=== PATIENT | male | born 1980 | race Caucasian/White ===

== ENCOUNTER 2016-06-01 09:15 | Emergency (ER) | payer SELFPAY ==
[2016-06-01 09:20] VITALS: RESP 16
[2016-06-01 09:34] LABS: COLOR RED; LEUKOCYTE ESTERASE,URINE NEGATIVE (NEGATIVE); NITRITE,URINE NEGATIVE (NEGATIVE)
[2016-06-01 09:39] LABS: RBC,URINE 50-182 /hpf (0-3); WBC,URINE 15-25 /hpf (0-3)
--- NOTE | 2016-06-01 10:30 | EDPHY ---
H & P Stated Complaint: Hematuria, dysuria since yesterday HPI/ROS: CHIEF COMPLAINT: Hematuria HISTORY OF PRESENT ILLNESS: The patient is a 35 year old male with history of kidney stones, who presents to the emergency department with hematuria that started yesterday. The patient was working out at the gym yesterday and developed some low back pain. He went to urinate and states it was "like red wine". This morning the hematuria worsened. He has associated urinary frequency with slight dysuria. No change in urinary stream. He continues to have bilateral back tightness. This pain radiates around the sides of his abdomen. He states this pain does not feel similar to previous kidney stones. He denies penile discharge. No new sexual partners. Patient takes a daily vitamin and protein powder, he occasionally takes creatine powder. He drinks 1 gallon of water daily. He denies fever, chills, chest pain, shortness of breath, palpitations, vomiting, diarrhea, headache, or lightheadedness. REVIEW OF SYSTEMS: Aside from elements discussed in the HPI, a comprehensive 10-point review of systems was reviewed and is negative. PAST MEDICAL HISTORY: Diverticulitis, Bowel perforation, Kidney stones. SOCIAL HISTORY: Single. Works as floor care technician. VITAL SIGNS: Reviewed by me GENERAL: Well-developed, well-nourished, resting comfortably in no respiratory distress. HEENT: Atraumatic. Eyes: No icterus, no injection. Mouth: dry lips. No erythema or lesions. Neck: supple with no adenopathy. LUNGS: Clear to auscultation bilaterally, no wheezes, rhonchi or rales. CARDIAC: Regular rate and rhythm, no rubs, murmurs or gallops. ABDOMEN: Soft, nontender, nondistended, bowel sounds normal. BACK: No CVA tenderness. No tenderness to palpation of lower back. GENITOURINARY: No testicular pain or swelling. EXTREMITIES: No trauma. No edema. Range of motion is normal throughout. NEURO: Alert and oriented, grossly nonfocal. SKIN: Warm and dry, no rash. PSYCHIATRIC: Normal mentation, no agitation. Portions of this note were transcribed by a medical field representative. I personally performed a history, physical exam, medical decision making, and confirmed accuracy of information the transcribed note. - Personal History Current Tetanus Diphtheria and Acellular Pertussis (TDAP): Yes - Medical/Surgical History Hx Asthma: No Hx Chronic Respiratory Disease: No Hx Diabetes: No Hx Cardiac Disease: No Hx Renal Disease: No Hx Cirrhosis: No Hx Alcoholism: No Hx HIV/AIDS: No Hx Splenectomy or Spleen Trauma: No Other PMH: MED HX-kidney stones. SURG-diverticulitis with bowel perforation - Social History Smoking Status: Former smoker Constitutional: Initial Vital Signs Temperature (C) 36.7 C 06/01/16 09:17 Heart Rate 75 06/01/16 09:17 Respiratory Rate 16 06/01/16 09:17 Blood Pressure 154/100 H 06/01/16 09:17 O2 Sat (%) 97 06/01/16 09:17 O2 Delivery Mode Room Air Allergies/Adverse Reactions: No Known Allergies Allergy (Verified 06/01/16 09:17) Home Medications: Medication Instructions Recorded Cephalexin [Keflex (RX)] 500 mg PO TID 7 Days 06/01/16 Medical Decision Making ED Course/Re-evaluation: UA was ordered. Plan to check BMP, CBC, and CHEM. UA shows RBC and WBCs. Patient was only able to give a small, very concentrated sample. Plan to repeat UA after patient can give a larger sample. 11:50 a.m.: I reevaluated the patient. His pain is waxing and waning on the left low back. He states his pain does not feel similar to previous kidney stone. He declines CT at this time. Urinalysis continues to be suspicious for urinary tract infection. Patient was given dose of ceftriaxone in the emergency department as well as Toradol. He was discharged on Keflex. He is advised to follow up with his primary care physician or to return to the emergency department if he is not improving as expected. He was advised to get plenty of rest and drink plenty of fluid, to avoid strenuous activity until his symptoms are improving. Differential Diagnosis: Differential diagnoses for the patient's symptom complex was considered including but not limited to urinary tract infection, hemorrhagic cystitis, blunt abdominal trauma, overuse syndrome, rhabdomyolysis, urinary tract infection, other mimics of hematuria. - Data Points Laboratory Results: Laboratory Results 06/01/16 10:43 06/01/16 10:43 06/01/16 06/01/16 06/01/16 10:50 10:43 10:43 WBC 7.69 10^3/uL 10^3/uL (3.80-9.50) RBC 5.31 10^6/uL 10^6/uL (4.40-6.38) Hgb 17.8 g/dL H g/dL (13.7-17.5) Hct 49.7 % % (40.0-51.0) MCV 93.6 fL fL (81.5-99.8) MCH 33.5 pg pg (27.9-34.1) MCHC 35.8 g/dL g/dL (32.4-36.7) RDW 11.8 % % (11.5-15.2) Plt Count 253 10^3/uL 10^3/uL (150-400) MPV 9.7 fL fL (8.7-11.7) Neut % (Auto) 62.2 % % (39.3-74.2) Lymph % (Auto) 23.5 % % (15.0-45.0) Cottle % (Auto) 10.7 % % (4.5-13.0) Eos % (Auto) 2.5 % % (0.6-7.6) Baso % (Auto) 0.7 % % (0.3-1.7) Nucleat RBC Rel Count 0.0 % % (0.0-0.2) Absolute Neuts (auto) 4.79 10^3/uL 10^3/uL (1.70-6.50) Absolute Lymphs (auto) 1.81 10^3/uL 10^3/uL (1.00-3.00) Absolute Monos (auto) 0.82 10^3/uL H 10^3/uL (0.30-0.80) Absolute Eos (auto) 0.19 10^3/uL 10^3/uL (0.03-0.40) Absolute Basos (auto) 0.05 10^3/uL 10^3/uL (0.02-0.10) Absolute Nucleated RBC 0.00 10^3/uL 10^3/uL (0-0.01) Immature Gran % 0.4 % % (0.0-1.1) Immature Gran # 0.03 10^3/uL 10^3/uL (0.00-0.10) Sodium 143 mEq/L mEq/L (134-144) Potassium 4.0 mEq/L mEq/L (3.5-5.2) Chloride 103 mEq/L mEq/L (97-110) Carbon Dioxide 26 mEq/l mEq/l (22-31) Anion Gap 14 mEq/L mEq/L (8-16) BUN 16 mg/dL mg/dL (7-23) Creatinine 1.0 mg/dL mg/dL (0.7-1.3) Estimated GFR > 60 Glucose 84 mg/dL mg/dL (70-100) Calcium 10.3 mg/dL mg/dL (8.5-10.4) Creatine Kinase 289 IU/L H IU/L (0-224) CK-MB (CK-2) Fraction 0.85 ng/mL ng/mL (0-3.19) CK-MB (CK-2) % 0.3 % % (0.0-4.0) Creatine Kinase Interp NEGATIVE (NEGATIVE) Urine Color RED Urine Appearance MODERATELY TURBID Urine pH 6.0 (5.0-7.5) Ur Specific [place] 1.023 (1.002-1.030) Urine Protein 2+ H (NEGATIVE) Urine Ketones NEGATIVE (NEGATIVE) Urine Blood 3+ H (NEGATIVE) Urine Nitrate NEGATIVE (NEGATIVE) Urine Bilirubin NEGATIVE (NEGATIVE) Urine Urobilinogen NEGATIVE EU EU (0.2-1.0) Ur Leukocyte Esterase NEGATIVE (NEGATIVE) Urine RBC 50-182 /hpf H /hpf (0-3) Urine WBC 10-15 /hpf H /hpf (0-3) Ur Epithelial Cells TRACE /lpf /lpf (NONE-1+) Urine Bacteria 1+ /hpf H /hpf (NONE SEEN) Urine Mucus TRACE /lpf /lpf (NONE-1+) Ur Culture Indicated? Urine Glucose NEGATIVE (NEGATIVE) 06/01/16 09:20 WBC RBC Hgb Hct MCV MCH MCHC RDW Plt Count MPV Neut % (Auto) Lymph % (Auto) Cottle % (Auto) Eos % (Auto) Baso % (Auto) Nucleat RBC Rel Count Absolute Neuts (auto) Absolute Lymphs (auto) Absolute Monos (auto) Absolute Eos (auto) Absolute Basos (auto) Absolute Nucleated RBC Immature Gran % Immature Gran # Sodium Potassium Chloride Carbon Dioxide Anion Gap BUN Creatinine Estimated GFR Glucose Calcium Creatine Kinase CK-MB (CK-2) Fraction CK-MB (CK-2) % Creatine Kinase Interp Urine Color RED Urine Appearance MODERATELY TURBID Urine pH 6.0 (5.0-7.5) Ur Specific [place] 1.023 (1.002-1.030) Urine Protein 2+ H (NEGATIVE) Urine Ketones NEGATIVE (NEGATIVE) Urine Blood 3+ H (NEGATIVE) Urine Nitrate NEGATIVE (NEGATIVE) Urine Bilirubin NEGATIVE (NEGATIVE) Urine Urobilinogen NEGATIVE EU EU (0.2-1.0) Ur Leukocyte Esterase NEGATIVE (NEGATIVE) Urine RBC 50-182 /hpf H /hpf (0-3) Urine WBC 15-25 /hpf H /hpf (0-3) Ur Epithelial Cells TRACE /lpf /lpf (NONE-1+) Urine Bacteria Urine Mucus Ur Culture Indicated? INDICATED H (NI) Urine Glucose NEGATIVE (NEGATIVE) Medications Given: Discontinued Medications Sodium Chloride (Ns) 1,000 mls @ 0 mls/hr IV ONCE ONE PRN Reason: Wide Open Stop: 06/01/16 10:34 Last Admin: 06/01/16 10:38 Dose: 1,000 mls Ceftriaxone Sodium/Dextrose (Rocephin 1 Gm (Premix)) 50 mls @ 100 mls/hr IV EDNOW ONE PRN Reason: Protocol Stop: 06/01/16 12:24 Last Admin: 06/01/16 13:02 Dose: 50 mls Ketorolac Tromethamine (Toradol) 30 mg IVP EDNOW ONE Stop: 06/01/16 11:56 Last Admin: 06/01/16 13:02 Dose: 30 mg Departure - Departure Disposition: Home, Routine, Self-Care Clinical Impression: Hematuria, possible pyelonephritis Condition: Good Instructions: Hematuria (ED) Additional Instructions: #1. Take full course of antibiotics as directed. #2. I recommend Ibuprofen (Motrin, Advil) or Naproxen Sodium (Aleve) for pain and anti-inflammatory effects. You may take either one, but do not take both. Your dose is: Ibuprofen 600 mg every 6-8 hours with food. OR Naproxen Sodium (Aleve) 220 mg every 12 hours. #3. You have been referred to a urologist. If you continue to have symptoms please followup with the urologist. Referrals: Jarett Mcfarland MD [Medical Doctor] - As per Instructions Prescriptions: Cephalexin [Keflex (RX)] 500 mg PO TID 7 Days Report Scribed for: Margoth Barry Report Scribed by: Lauren Ovalles Date of Report: 06/01/16 Time of Report: 10:33
[2016-06-01] MEDS ORDERED: NS 1,000 ML IV ONE (10:33)
[2016-06-01 11:04] LABS: % IMMATURE GRANULYOCYTES 0.4 % (0.0-1.1); ABSOLUTE IMMATURE GRANULOCYTES 0.03 10^3/uL (0.00-0.10); ADD DIFF? NO; ADD MORPH? NO; ADD SCAN? NO; ATYPICAL LYMPHOCYTE FLAG 0 (0-99); FRAGMENT RBC FLAG 0 (0-99); HEMATOCRIT 49.7 % (40.0-51.0); HEMOGLOBIN 17.8 g/dL (13.7-17.5); LEFT SHIFT FLG 0 (0-99); LIPEMIA HEMOLYSIS FLAG 90 (0-99); MEAN CELL HEMOGLOBIN 33.5 pg (27.9-34.1); MEAN CELL HEMOGLOBIN CONCENTR. 35.8 g/dL (32.4-36.7); MEAN CELL VOLUME 93.6 fL (81.5-99.8); MEAN PLATELET VOLUME 9.7 fL (8.7-11.7); PLATELET CLUMPS FLAG 0 (0-99); PLATELET COUNT 253 10^3/uL (150-400); RED BLOOD CELL COUNT 5.31 10^6/uL (4.40-6.38); RED CELL DISTRIBUTION WIDTH 11.8 % (11.5-15.2)
[2016-06-01 11:12] LABS: COLOR RED; LEUKOCYTE ESTERASE,URINE NEGATIVE (NEGATIVE); NITRITE,URINE NEGATIVE (NEGATIVE)
[2016-06-01 11:27] LABS: BACTERIA 1+ /hpf (NONE SEEN); MUCUS TRACE /lpf (NONE-1+); RBC,URINE 50-182 /hpf (0-3)
[2016-06-01 11:31] LABS: ANION GAP 14 mEq/L (8-16); CALCIUM 10.3 mg/dL (8.5-10.4); CARBON DIOXIDE 26 mEq/l (22-31); CHLORIDE 103 mEq/L (97-110); GLOMERULAR FILTRATION RATE > 60; GLUCOSE 84 mg/dL (70-100); SODIUM 143 mEq/L (134-144)
[2016-06-01 11:52] LABS: CK-MB INTERPRETATION NEGATIVE (NEGATIVE); CREATINE KINASE-MB FRACTION 0.85 ng/mL (0-3.19)
[2016-06-01] MEDS ORDERED: KETOROLAC 30 MG/1 ML SDV IVP ONE (11:55)
[2016-06-01 13:05] VITALS: BP 152/96; PULSE 84; TEMP 97.2; O2SAT 98
== END 2016-06-01 13:23 | disposition home or self-care (01) ==
DX: R31.9 Hematuria, unspecified (principal); Z87.891 Personal history of nicotine dependence
CPT/HCPCS: 96365; J0696; J1885

== ENCOUNTER 2016-06-03 05:04 | Emergency (ER) | payer SELFPAY ==
[2016-06-03 05:24] VITALS: TEMP 97.9
[2016-06-03] MEDS ORDERED: ONDANSETRON 4 MG/2 ML VIAL ONE (05:25)
[2016-06-03] MEDS ORDERED: KETOROLAC 15 MG/1 ML SDV ONE (05:25)
[2016-06-03] MEDS ORDERED: NS 1,000 ML IV ONE (05:26)
[2016-06-03] MEDS ORDERED: KETOROLAC 15 MG/1 ML SDV IVP ONE (05:26)
[2016-06-03] MEDS ORDERED: ONDANSETRON 4 MG/2 ML VIAL IVP ONE (05:26)
[2016-06-03] MEDS ORDERED: HYDROmorphONE/DILAUDID 1 MG/ML SYR IVP PRN (05:37)
[2016-06-03 05:41] LABS: COLOR YELLOW; LEUKOCYTE ESTERASE,URINE NEGATIVE (NEGATIVE); NITRITE,URINE NEGATIVE (NEGATIVE)
[2016-06-03 05:59] LABS: MUCUS TRACE /lpf (NONE-1+)
[2016-06-03] MEDS ORDERED: METOCLOPRAMIDE 10 MG/2 ML VIAL ONE (06:08)
[2016-06-03] MEDS ORDERED: METOCLOPRAMIDE 10 MG/2 ML VIAL IVP ONE (06:09)
--- NOTE | 2016-06-03 06:34 | EDPHY ---
H & P Stated Complaint: FLANK PAIN, ABD PAIN, NAUSEA, SEEN 2 DAYS AGO FOR KIDNEY STONE Time Seen by Provider: 06/03/16 05:32 HPI/ROS: HPI The patient presents with severe right-sided flank pain which began about 3 hours ago and awoke him from sleep. The pain is dull, radiates forward toward his abdomen and is associated with decreased urine output. He also is feeling nauseated and vomiting. He was seen yesterday because of hematuria alone without any pain. He had labs checked and was started on Keflex after receiving a dose of ceftriaxone. He has prior history of right-sided 2 mm kidney stone with hydronephrosis in November of 2014. He passed the stone on his own and has been asymptomatic since.. REVIEW OF SYSTEMS Constitutional: No fever, no chills. Eyes: No discharge. ENT: No sore throat. Cardiovascular: No chest pain, no palpitations. Respiratory: No cough, no shortness of breath. Gastrointestinal: See HPI Genitourinary: + hematuria. Musculoskeletal: No back pain. Skin: No rashes. Neurological: No headache. PMHx: History of right-sided kidney stones Soc Hx: Exercises frequently PHYSICAL General Appearance: Alert, uncomfortable appearing Eyes: Pupils equal and round no pallor or injection ENT, Mouth: Mucous membranes moist Respiratory: There are no retractions, lungs are clear to auscultation Cardiovascular: Regular rate and rhythm Gastrointestinal: Abdomen is soft and non-tender, no masses, bowel sounds normal Neurological: A&O, moves all extremities Skin: Warm and dry, no rashes Musculoskeletal: Neck is supple non tender Extremities: symmetrical, full range of motion Psychiatric: Patient is oriented X 3, there is no agitation Source: Patient Exam Limitations: No limitations - Personal History Current Tetanus/Diphtheria Vaccine: Yes Current Tetanus Diphtheria and Acellular Pertussis (TDAP): Yes - Medical/Surgical History Hx Asthma: No Hx Chronic Respiratory Disease: No Hx Diabetes: No Hx Cardiac Disease: No Hx Renal Disease: No Hx Cirrhosis: No Hx Alcoholism: No Hx HIV/AIDS: No Hx Splenectomy or Spleen Trauma: No Other PMH: MED HX-kidney stones. SURG-diverticulitis with bowel perforation - Social History Smoking Status: Former smoker Constitutional: Initial Vital Signs Temperature (C) 36.6 C 06/03/16 05:22 Heart Rate 75 06/03/16 05:22 Respiratory Rate 20 06/03/16 05:22 Blood Pressure 177/117 H 06/03/16 05:22 O2 Sat (%) 99 06/03/16 05:22 O2 Delivery Mode Room Air Allergies/Adverse Reactions: No Known Allergies Allergy (Verified 06/03/16 05:22) Home Medications: Medication Instructions Recorded Cephalexin [Keflex (RX)] 500 mg PO TID 7 Days 06/01/16 Hydrocodone/APAP 5/325 [[place] 1 - 2 tab PO Q6H PRN #10 tab 06/03/16 5/325 (*)] Ondansetron Odt [Zofran Odt 4 mg 4 mg PO Q4 PRN #10 tab 06/03/16 (*)] Tamsulosin HCl [Flomax 0.4 MG (*)] 0.4 mg PO DAILY #10 cap 06/03/16 Medical Decision Making - Diagnostics Imaging: Ultrasound kidneys demonstrates right-sided hydronephrosis, discussed with Dr. Alatorre of Radiology. Differential Diagnosis: This is a 35-year-old man who presents from home with 3 hours of right-sided flank pain with prior history of right-sided kidney stone. He has associated vomiting and hematuria. He was seen in the emergency room yesterday for hematuria without pain. Differential diagnosis includes ureterolithiasis, pyelonephritis, less likely AAA or rhabdomyolysis. The patient was monitored in the emergency room. He was given IV fluids for vomiting. He had pain after receiving Toradol and Zofran and thus was given a dose of Dilaudid with improvement in his symptoms. Labs showed recurrent hematuria though improved from previous labs on comparison. Renal function is normal. Ultrasound does demonstrate right-sided hydronephrosis. In the setting of CT proven ureterolithiasis several years ago, I feel he most likely has a recurrence. He will be given additional pain medicine as he is still uncomfortable. I have given him information for Urology follow-up. He will be discharged from the emergency room in good condition. - Data Points Laboratory Results: 06/03/16 05:15 Urine Color YELLOW Urine Appearance CLEAR Urine pH 5.0 (5.0-7.5) Ur Specific [place] 1.020 (1.002-1.030) Urine Protein NEGATIVE (NEGATIVE) Urine Ketones NEGATIVE (NEGATIVE) Urine Blood 2+ H (NEGATIVE) Urine Nitrate NEGATIVE (NEGATIVE) Urine Bilirubin NEGATIVE (NEGATIVE) Urine Urobilinogen NEGATIVE EU EU (0.2-1.0) Ur Leukocyte Esterase NEGATIVE (NEGATIVE) Urine RBC 5-10 /hpf H /hpf (0-3) Urine WBC 1-3 /hpf /hpf (0-3) Ur Epithelial Cells Not Reported Urine Mucus TRACE /lpf /lpf (NONE-1+) Urine Glucose NEGATIVE (NEGATIVE) Medications Given: Discontinued Medications Diphenhydramine HCl (Benadryl Injection) 25 mg IVP EDNOW ONE Stop: 06/03/16 06:10 Last Admin: 06/03/16 06:12 Dose: 25 mg Sodium Chloride (Ns) 1,000 mls @ 0 mls/hr IV ONCE ONE PRN Reason: Wide Open Stop: 06/03/16 05:27 Last Admin: 06/03/16 05:31 Dose: 1,000 mls Ketorolac Tromethamine (Toradol) 15 mg IVP EDNOW ONE Stop: 06/03/16 05:27 Last Admin: 06/03/16 05:32 Dose: 15 mg Metoclopramide HCl (Reglan Injection) 10 mg IVP EDNOW ONE Stop: 06/03/16 06:10 Last Admin: 06/03/16 06:12 Dose: 10 mg Ondansetron HCl (Zofran) 4 mg IVP EDNOW ONE Stop: 06/03/16 05:27 Last Admin: 06/03/16 05:32 Dose: 4 mg Departure - Departure Disposition: Home, Routine, Self-Care Clinical Impression: Calculus of right kidney Condition: Good Instructions: Kidney Stones (ED), Renal Colic (ED) Additional Instructions: Please continue to take the Keflex in addition to the medications we have prescribed for you. You should take ibuprofen for your pain and if it still persists after this you can take the [place] I have prescribed for you. Return to the emergency room if your worse in any way. Referrals: Jarett Mcfarland MD [Medical Doctor] - As per Instructions Prescriptions: Hydrocodone/APAP 5/325 [[place] 5/325 (*)] 1 - 2 tab PO Q6H PRN #10 tab PRN Reason: Pain, Breakthrough Ondansetron Odt [Zofran Odt 4 mg (*)] 4 mg PO Q4 PRN #10 tab PRN Reason: Nausea/Vomiting, Can'T Take Po Tamsulosin HCl [Flomax 0.4 MG (*)] 0.4 mg PO DAILY #10 cap
[2016-06-03 06:38] VITALS: O2SAT 97
[2016-06-03] MEDS ORDERED: HYDROmorphONE/DILAUDID 1 MG/ML SYR IVP ONE (07:23)
[2016-06-03] MEDS ORDERED: LIDOCAINE 2% 100 MG/5 ML SYR IVP ONE (07:24)
[2016-06-03] MEDS ORDERED: NS IV ONE (08:00)
[2016-06-03] MEDS ORDERED: LIDOCAINE IV ONE (08:00)
[2016-06-03 08:30] VITALS: BP 140/80; PULSE 67; RESP 16
== END 2016-06-03 08:30 | disposition home or self-care (01) ==
DX: N20.0 Calculus of kidney (principal); Z87.891 Personal history of nicotine dependence
CPT/HCPCS: 96374; J1170; J1200; J1885; J2001; J2405; J2765

== ENCOUNTER 2017-04-10 04:59 | Emergency (ER) | payer SELFPAY ==
[2017-04-10 05:06] VITALS: RESP 16; TEMP 97.7
[2017-04-10] MEDS ORDERED: KETOROLAC 15 MG/1 ML SDV IVP ONE (05:25)
[2017-04-10] MEDS ORDERED: NS 1,000 ML IV ONE ×2 (05:25)
[2017-04-10] MEDS ORDERED: LIDOCAINE 1% 150 MG in NS 100 ML IV ONE (05:25)
[2017-04-10 05:30] LABS: PLATELET COUNT 330 10^3/uL (150-400)
[2017-04-10] MEDS ORDERED: ONDANSETRON 4 MG/2 ML VIAL ONE (05:30)
[2017-04-10] MEDS ORDERED: ONDANSETRON 4 MG/2 ML VIAL IVP ONE (05:36)
--- NOTE | 2017-04-10 06:21 | EDPHY ---
H & P Stated Complaint: c/o R lower back pain radiating into R flank - hx kidney stones, feels same Time Seen by Provider: 04/10/17 05:13 HPI/ROS: HPI The patient presents with right-sided flank pain which has been present for the last several hours which is dull in nature and radiates forward toward his abdomen. It is been constant. As he had some irritative voiding symptoms over the last day. The pain is severe in nature and feels like his prior kidney stones. It is associated with hematuria.. REVIEW OF SYSTEMS Constitutional: No fever, no chills. Eyes: No discharge. ENT: No sore throat. Cardiovascular: No chest pain, no palpitations. Respiratory: No cough, no shortness of breath. Gastrointestinal: No abdominal pain, no vomiting. Genitourinary: Positive for hematuria. Musculoskeletal: No back pain. Skin: No rashes. Neurological: No headache. PMHx: History of renal colic PHYSICAL General Appearance: Alert, no distress Eyes: Pupils equal and round no pallor or injection ENT, Mouth: Mucous membranes moist Respiratory: There are no retractions, lungs are clear to auscultation Cardiovascular: Regular rate and rhythm Gastrointestinal: Abdomen is soft and non-tender, no masses, bowel sounds normal Back: Right-sided flank tenderness Neurological: A&O, moves all extremities Skin: Warm and dry, no rashes Musculoskeletal: Neck is supple non tender Extremities: symmetrical, full range of motion Psychiatric: Patient is oriented X 3, there is no agitation Source: Patient Exam Limitations: No limitations - Medical/Surgical History Hx Asthma: No Hx Chronic Respiratory Disease: No Hx Diabetes: No Hx Cardiac Disease: No Hx Renal Disease: No Hx Cirrhosis: No Hx Alcoholism: No Hx HIV/AIDS: No Hx Splenectomy or Spleen Trauma: No Other PMH: MED HX-kidney stones. SURG-diverticulitis with bowel perforation, L acl repair - Social History Smoking Status: Former smoker Constitutional: Initial Vital Signs Temperature (C) 36.5 C 04/10/17 05:03 Heart Rate 82 04/10/17 05:03 Respiratory Rate 16 04/10/17 05:03 Blood Pressure 180/131 H 04/10/17 05:03 O2 Sat (%) 100 04/10/17 05:03 O2 Delivery Mode Room Air Allergies/Adverse Reactions: No Known Allergies Allergy (Verified 04/10/17 05:06) Home Medications: Medication Instructions Recorded Hydrocodone/APAP 5/325 [[place] 1 - 2 tab PO Q6H PRN #15 tab 04/10/17 5/325 (*)] Ondansetron Odt [Zofran Odt 4 mg 4 mg PO Q4 PRN #10 tab 04/10/17 (*)] Tamsulosin HCl [Flomax 0.4 MG (*)] 0.4 mg PO DAILY #10 cap 04/10/17 Medical Decision Making Procedures: Bedside limited abdominal Ultrasound- performed and interpreted by me. Indication: Hematuria and right flank pain Findings: Right-sided hydronephrosis, no free fluid in Morison's pouch, no left -sided hydronephrosis Impression: Right-sided hydronephrosis Differential Diagnosis: 36-year-old man with history of nephrolithiasis presents with 2 days of right- sided flank pain associated with irritative voiding and hematuria. Pain feels like his prior kidney stones. All have passed on her own without any urologic intervention. On exam, he is generally well-appearing, has right-sided flank tenderness. In the emergency department, patient was given IV fluids, pain medication, antiemetics improvement in his symptoms. Labs were checked and did reveal hematuria with dehydration. He had bedside renal ultrasound which demonstrated mild right-sided hydronephrosis. I feel he likely has ureterolithiasis as the cause of his symptoms. He will be discharged with pain medication, urologic referral as needed. He is in agreement with this plan. - Data Points Laboratory Results: Laboratory Results 04/10/17 05:15 04/10/17 05:15 Medications Given: Discontinued Medications Sodium Chloride (Ns) 1,000 mls @ 0 mls/hr IV EDNOW ONE; Wide Open PRN Reason: Protocol Stop: 04/10/17 05:26 Last Admin: 04/10/17 05:36 Dose: 1,000 mls Sodium Chloride (Ns) 1,000 mls @ 0 mls/hr IV EDNOW ONE; Wide Open PRN Reason: Protocol Stop: 04/10/17 05:26 Last Admin: 04/10/17 05:36 Dose: 1,000 mls Lidocaine HCl 150 mg/ Sodium (Chloride) 115 mls @ 600 mls/hr IV EDNOW ONE Stop: 04/10/17 05:36 Last Admin: 04/10/17 06:10 Dose: 115 mls Ketorolac Tromethamine (Toradol) 15 mg IVP EDNOW ONE Stop: 04/10/17 05:26 Last Admin: 04/10/17 05:33 Dose: 15 mg Morphine Sulfate (Morphine) 4 mg IVP EDNOW ONE Stop: 04/10/17 05:26 Last Admin: 04/10/17 05:34 Dose: 4 mg Ondansetron HCl (Zofran) 4 mg IVP EDNOW ONE Stop: 04/10/17 05:37 Last Admin: 04/10/17 05:37 Dose: 4 mg Departure - Departure Disposition: Home, Routine, Self-Care Clinical Impression: Ureterolithiasis, Flank pain Condition: Good Instructions: Renal Colic (ED) Additional Instructions: 1. Take Ibuprofen or Motrin 600 mg by mouth three times a day. 2. [place] as needed for severe pain 3. Flomax as directed 4. Zofran as needed for nausea 5. Strain urine as directed 6. Return to the Emergency Department for intractable pain, fever or vomiting. 7. Followup with the urologist you have been referred to for unimproved symptoms. Referrals: Mynor Wolf MD [Medical Doctor] - As per Instructions Prescriptions: Hydrocodone/APAP 5/325 [[place] 5/325 (*)] 1 - 2 tab PO Q6H PRN #15 tab PRN Reason: Pain, Breakthrough Ondansetron Odt [Zofran Odt 4 mg (*)] 4 mg PO Q4 PRN #10 tab PRN Reason: Nausea/Vomiting, Can'T Take Po Tamsulosin HCl [Flomax 0.4 MG (*)] 0.4 mg PO DAILY #10 cap
[2017-04-10 07:02] VITALS: BP 148/86; PULSE 69; O2SAT 96
== END 2017-04-10 07:01 | disposition home or self-care (01) ==
DX: N20.1 Calculus of ureter (principal); E86.9 Volume depletion, unspecified; Z87.891 Personal history of nicotine dependence
CPT/HCPCS: 96374; J1885; J2405

== ENCOUNTER 2017-04-30 19:06 | Emergency (ER) | payer SELFPAY ==
[2017-04-30 19:17] VITALS: RESP 15; TEMP 97.9
[2017-04-30] MEDS ORDERED: ONDANSETRON 4 MG/2 ML VIAL IVP ONE (19:19)
[2017-04-30] MEDS ORDERED: HYDROmorphONE/DILAUDID 1 MG/ML INJ IVP ONE (19:19)
[2017-04-30] MEDS ORDERED: NS 1,000 ML IV ONE (19:20)
[2017-04-30 19:27] LABS: PLATELET COUNT 217 10^3/uL (150-400)
--- NOTE | 2017-04-30 20:04 | EDPHY ---
H & P Time Seen by Provider: 04/30/17 19:23 HPI/ROS: This patient complains of right-sided flank pain sharp in nature, onset few hours prior to arrival with associated hematuria. This pain is similar to prior ureteral stone diagnosed 2 weeks ago at [facility] with the bedside sonogram documenting hydronephrosis on the right. He did report improvement in his symptoms while taking Flomax over subsequent days. He admits that he did not actually filter was urine to document stone passage and today he reports recurrence of similar symptoms. 8/ 10 intensity at peak sharp in nature. He took 800 mg of ibuprofen at noon with partial relief and reports ongoing moderate to severe pain currently. No other exacerbating factors. He arrived here by private vehicle. ROS: Constitutional: No fevers or chills HEENT: No complaints Pulmonary: No shortness of breath chest pain Cardiovascular: No lightheadedness GI: He reports mild right lower belly tenderness and feels this is radiating from the right flank. : He has mild right-sided testicular pain he has had with prior kidney stones. He reports some urinary urgency. No dysuria. Endocrine: No complaints Integumentary: No complaints 10 point ROS is otherwise negative Past Medical/Surgical History: Prior ureteral stone and kidney stones. Smoking Status: Former smoker Physical Exam: Initial vital signs notable for hypertension. Otherwise normal General Appearance: Alert, moderate distress due to call keep pain Eyes: Pupils equal and round no pallor or injection. ENT, Mouth: Mucous membranes moist. Respiratory: There are no retractions, lungs are clear to auscultation. Cardiovascular: Regular rate and rhythm. No murmur gallop or rub Gastrointestinal: Abdomen is soft and nontender, no masses, bowel sounds normal. Back: Mild right CVA tenderness is present. : Mild right testicle tenderness without swelling. The left testicle tenderness Neurological: GCS 15 with no focal deficits. Skin: Warm and dry, no rashes. Musculoskeletal: Neck is supple nontender. Extremities are symmetrical, full range of motion. Psychiatric: Mood and affect are normal. DIFFERENTIAL DIAGNOSIS: After history and physical exam differential diagnosis was considered for left ureteral stone, UTI, musculoskeletal pain Constitutional: Initial Vital Signs Temperature (C) 36.6 C 04/30/17 19:13 Heart Rate 85 04/30/17 19:13 Respiratory Rate 15 04/30/17 19:13 Blood Pressure 183/112 H 04/30/17 19:13 O2 Sat (%) 95 04/30/17 19:13 O2 Delivery Mode Room Air Allergies/Adverse Reactions: No Known Allergies Allergy (Verified 04/10/17 05:06) Home Medications: Medication Instructions Recorded Hydrocodone/APAP 5/325 [[place] 1 - 2 tab PO Q6H PRN #15 tab 04/10/17 5/325 (*)] Ondansetron Odt [Zofran Odt 4 mg 4 mg PO Q4 PRN #10 tab 04/10/17 (*)] Tamsulosin HCl [Flomax 0.4 MG (*)] 0.4 mg PO DAILY #10 cap 04/10/17 MDM/Departure - MDM Diagnostics: Urinalysis reveals hematuria. CBC reveals mild leukocytosis Metabolic panel reveals normal kidney function. Imaging Results: Imaging Impressions Abdomen/Pelvis CT 04/30/17 19:31 Impression: 1. A 3 mm calculus is seen in the bladder from a recently passed stone on the right, with mild right hydroureter. Bilateral nonobstructive nephrolithiasis. 2. Constipation. Results called and discussed with Dr. Buddy Almeida on 04/30/2017, 19:58. Attention: This CT examination is specifically designed to evaluate patients who are clinically suspected of having acute obstructive uropathy. This examination does not use radiographic contrast, and as such, provides only a limited evaluation of the abdomen, pelvis and retroperitoneum. If there is further clinical suspicion for pathological conditions other than obstructive uropathy, a complete CT evaluation of the abdomen and pelvis utilizing intravenous, oral, and rectal contrast should be considered. Imaging: Discussed imaging studies w/ call worker person Radiologist Medications Given: Discontinued Medications Hydromorphone HCl (Dilaudid) 1 mg IVP EDNOW ONE Stop: 04/30/17 19:20 Last Admin: 04/30/17 19:23 Dose: 1 mg Sodium Chloride (Ns) 1,000 mls @ 0 mls/hr IV ONCE ONE; Wide Open PRN Reason: Protocol Stop: 04/30/17 19:21 Last Admin: 04/30/17 19:23 Dose: 1,000 mls Ondansetron HCl (Zofran) 4 mg IVP EDNOW ONE Stop: 04/30/17 19:20 Last Admin: 04/30/17 19:23 Dose: 4 mg ED Course/Re-evaluation: IV normal saline bolus, Dilaudid with improvement in pain. Zofran with resolution of nausea. CT abdomen pelvis reveals recent passage of stone into the bladder-3 mm sized down with mild residual hydronephrosis per Dr. Bah-radiologist. I counseled the patient regarding his imaging findings lab findings. He feels significantly improved. I counseled him regarding ureteral stones and kidney stones. Answered all his questions prior to discharge. - Depart Disposition: Home, Routine, Self-Care Clinical Impression: Ureteral stone Condition: Good Instructions: Ureteral Stones (ED) Additional Instructions: Diagnosis: Ureteral stone-passed into the bladder Plan: Drink plenty fluids Ibuprofen for any lingering discomfort if needed. You may have slight burning with urination as you pass the stone out of your bladder. Return if you develops fevers or other concerns. Referrals: NONE *PRIMARY CARE P,. [Primary Care Provider] - As per Instructions
[2017-04-30 20:13] VITALS: BP 141/79; PULSE 80; O2SAT 94
== END 2017-04-30 20:11 | disposition home or self-care (01) ==
LOC: CED 19:06
DX: N20.1 Calculus of ureter (principal); E86.9 Volume depletion, unspecified; Z87.891 Personal history of nicotine dependence
CPT/HCPCS: 74176-PO; 80048-PO; 81003-PO; 81015-PO; 85025-PO; 96374; J1170; J2405